=== PATIENT | male | born 1950 | race Caucasian/White ===

== ENCOUNTER 2020-06-30 11:31 | Outpatient (CLI) | payer OTHER | END 2020-06-30 19:15 | disposition home or self-care (01) | LOC: SRD 11:31 | PROVIDERS: ATTEND Otolaryngology | DX: K21.9 Gastro-esophageal reflux disease without esophagitis (principal); K44.9 Diaphragmatic hernia without obstruction or gangrene; R13.10 Dysphagia, unspecified | CPT/HCPCS: 74220-TC ==